=== PATIENT | female | born 1985 | race American Indian/Alaskan Native ===

== ENCOUNTER 2018-07-14 19:26 | Emergency (ER) | payer OTHER ==
[2018-07-14] MEDS ORDERED: Lactated Ringer's 1,000 ML IV SCH (21:00)
[2018-07-14 21:08] VITALS: BMI 23.3
[2018-07-14 21:08] LABS: BASO % 0.3 % (0.0-2.0); EOS # 0.1 K/uL (0.0-0.7); EOS % 0.8 % (0.0-4.0); HEMOGLOBIN 10.4 g/dL (12.0-16.0); LYMPH # 1.1 K/uL (1.0-4.3); LYMPH % 17.2 % (20.0-40.0); MEAN CELL VOLUME 77.7 fl (81.0-99.0); MEAN CORPUSCULAR HEMOGLOBIN 25.6 pg (27.0-31.0); MEAN CORPUSCULAR HGB CONC 32.9 g/dL (33.0-37.0); MEAN PLATELET VOLUME 9.2 fl (7.2-11.7); MONO # 0.9 K/uL (0.0-0.8); NEUT # 4.4 K/uL (1.8-7.0); NEUT % 67.7 % (50.0-75.0); RBC 4.08 Mil/uL (3.80-5.20); RED CELL DISTRIBUTION WIDTH 18.2 % (11.5-14.5); WHITE BLOOD COUNT 6.4 K/uL (4.8-10.8)
[2018-07-14 21:14] LABS: SQUAMOUS EPITHIAL 1 /hpf (0-5); URINE BACTERIA OCC (<OCC); URINE BILIRUBIN NEGATIVE (NEGATIVE); URINE BLOOD NEGATIVE (NEGATIVE); URINE CLARITY CLEAR (Clear); URINE COLOR STRAW (YELLOW); URINE GLUCOSE (UA) NEG (Normal); URINE LEUKOCYTE ESTERASE NEG Leu/uL (Negative); URINE PROTEIN NEGATIVE (NEGATIVE); URINE UROBILINOGEN 0.2-1.0 mg/dL (0.2-1.0)
[2018-07-14 21:19] LABS: ALB/GLOB RATIO 1.1 (1.0-2.1); ALBUMIN 3.6 g/dL (3.5-5.0); ALT/SGPT 25 U/L (9-52); AMYLASE 81 U/L (30-110); AST/SGOT 30 U/L (14-36); BLOOD UREA NITROGEN 4 mg/dl (7-17); CALCIUM 8.8 mg/dL (8.4-10.2); GFR NON-AFRICAN AMERICAN > 60; LIPASE 110 U/L (23-300)
[2018-07-15 03:12] VITALS: BP 109/61; PULSE 78; RESP 17; TEMP 98.2
--- NOTE | 2018-07-15 09:37 | OBHP ---
Datetime: 07/14/2018 20:57 IP Adm Impression: , intrauterine IP Admit Plan: Observation/Evaluation Admit Comment, IP Provider: Pt is a 32 yo 35.1 wk present to [facility] due to feeling fever, ch ills, nausea, abdominal discomfort taht started yesterday. Pt state that she have taken Tums for her nausea with no improvemt, pt denies vomiting. Pt also state that she had some fluid discharge but den ies wetting bed, floor, or gush of fluid nor vaginal bleeding. Pt have no other complain. Pt denies c hest pain sob, frequent contraction, dysuria or polyuria. Allergy: fruits, nuts ( SOB, itchy) Meds: PNV, iron ( not taken due make her feel uncomfortable) PMH: anemia OBHx: 2 miscarriage, 1 , 2 c-sec due to decrease placenta fluid PFH: mom dm/htn, pancreatic cancer, Dad prostate cancer social: denies smoke/drink or drug use ROS: all neg except if mentioned in HPI Assessment Pt is a 32 yo 35.1 wk present to [facility] due to feeling fever, chills, nausea, abdominal di scomfort taht started yesterday Pt is lying comfortable in bed cervix is closed Pt feel baby moving Vitals: wnl strip reassuring Plan CBC/CMP UA amylase/lipase LR 1L at 999 Will reassess after blood work is back 21:56 Reassessment pt is lying comfortable in bed with no acute distress vitals wnl strip reassuring Lab wnl except for H/H 10.4/31.7 Plan Discharge home, f/u with doctor pt was advised to go to ER if feel worst, chest pain, sob, abd pain, diarrhea, dysuria or polyuria , vaginal bleed, water gush, or any other concern Discussed with Dr Jose Angel Salas PGY1 Addendum: I saw and examined patient. heart tracing reactive, no evidence of labor at this papo e. All labs within normal limits. Patient comfortable without complaints. Patient discharged home wit h labor precautions. [place] Pelvic Type - PN: Adequate Extremities - PN: Normal Abdomen - PN: Normal Back - PN: Not Done Breast - PN: Not Done Lungs - PN: Normal Thyroid - PN: Not Done Neurologic - PN: Not Done HEENT - PN: Normal General - PN: Normal FHR - Baseline A Provider: 135 Comments, ACOG Physical Exam: pt is lying comfortable in bed with no acute distress Cardio: s1/s2 heard no murmur lung clear in all quadrant abd; nontender, bs+ extremities no calf tenderness pelvic: cervix is close EGA AdmitDate IP: 35.1 Vital Signs Provider: Reviewed; Within Normal Limits IP Chief Complaint: Maternal discomfort NICHD Variability Prov Fetus A: Moderate 6-25bpm NICHD Decel Fetus A IP Provider: None Genitourinary Exam: Not Done DTRs - PN: Not Done
== END 2018-07-14 22:00 | disposition home or self-care (01) ==
LOC: H.EROB2 19:26
DX: O26.93 Pregnancy related conditions, unspecified, third trimester (principal); R10.2 Pelvic and perineal pain; Z87.59 Personal history of other complications of pregnancy, childbirth and the puerperium; Z3A.35 35 weeks gestation of pregnancy; O47.03 False labor before 37 completed weeks of gestation, third trimester; R50.9 Fever, unspecified; R11.0 Nausea
CPT/HCPCS: 80053; 81003; 82150; 83690; 85025; 96360; 99283; J7120

== ENCOUNTER 2018-08-08 09:36 | Inpatient (IN) | payer OTHER ==
[2018-08-08 09:57] VITALS: BMI 25.0
[2018-08-08] MEDS ORDERED: Lactated Ringer's 1,000 ML IV ONE ×2 (10:20→15:15)
[2018-08-08] MEDS ORDERED: cefOXitin 2 GM in Sodium Chloride 0.9% 100 ML IVPB ONE ×3 (10:20→20:06)
[2018-08-08] MEDS ORDERED: Oxytocin 30 units/LR 500ML 30 UNITS/500 ML BAG IV ONE ×4 (10:26→20:06)
[2018-08-08] MEDS ORDERED: OXYTOCIN/0.9 % NS 20 UNIT/1,000 ML BAG IV ONE (10:30)
[2018-08-08 11:27] LABS: BASO % 0.3 % (0.0-2.0); EOS % 0.6 % (0.0-4.0); HEMOGLOBIN 11.5 g/dL (12.0-16.0); LYMPH # 1.4 K/uL (1.0-4.3); LYMPH % 17.6 % (20.0-40.0); MEAN CELL VOLUME 78.1 fl (81.0-99.0); MEAN CORPUSCULAR HEMOGLOBIN 25.7 pg (27.0-31.0); MEAN CORPUSCULAR HGB CONC 32.9 g/dL (33.0-37.0); MEAN PLATELET VOLUME 9.4 fl (7.2-11.7); MONO # 0.6 K/uL (0.0-0.8); NEUT # 5.8 K/uL (1.8-7.0); NEUT % 74.5 % (50.0-75.0); NRBC % 0.1 % (0.0-0.0); RBC 4.47 Mil/uL (3.80-5.20); RED CELL DISTRIBUTION WIDTH 19.2 % (11.5-14.5); WHITE BLOOD COUNT 7.8 K/uL (4.8-10.8)
[2018-08-08] MEDS ORDERED: NS IV ONE (11:56)
[2018-08-08] MEDS ORDERED: OXYTOCIN IV ONE (11:56)
[2018-08-08] MEDS ORDERED: ePHEDrine 50 mg/ml Inj ONE (14:04)
[2018-08-08] MEDS ORDERED: Morphine 1 mg/ml preservative-free Inj(Duramorph) ONE (14:04)
[2018-08-08] MEDS ORDERED: Oxytocin 30 UNIT 30 UNITS/500 ML BAG IV ONE (16:35)
[2018-08-08] MEDS ORDERED: DiphenhydrAMINE 50 mg/ml Inj IVP PRN ×2 (17:23→20:06)
--- NOTE | 2018-08-08 17:31 | OBADHP ---
Datetime: 08/08/2018 17:25 Admit Comment, IP Provider: iuyp at term uneventful course previous section admitted for re peat section Pelvic Type - PN: Adequate Extremities - PN: Normal Abdomen - PN: Normal Back - PN: Normal Breast - PN: Normal Lungs - PN: Normal Heart - PN: Normal Thyroid - PN: Normal Neurologic - PN: Normal HEENT - PN: Normal General - PN: Normal Presentation-Admit: Vertex FHR - Baseline A Provider: 130 Membranes, Provider: Intact Contraction Comments Provider: irregular Gestation - Est Wks by US: 39.0 Vital Signs Provider: Reviewed; Within Normal Limits IP Chief Complaint: Uterine contractions NICHD Variability Prov Fetus A: Moderate 6-25bpm NICHD Accel Fetus A IP Provider: 10X10 FHR Category Provider Fetus A: Category I NICHD Decel Fetus A IP Provider: None Dilatation, Provider: 1 Effacement, Provider: 50 Station, Provider: -3 Genitourinary Exam: Normal DTRs - PN: Normal EGA AdmitDate IP: 38.5 IP Adm Impression: Term, intrauterine IP Admit Plan: Admit to unit; Initiate Section protocol Datetime: 07/14/2018 20:57 Comments, ACOG Physical Exam: pt is lying comfortable in bed with no acute distress Cardio: s1/s2 heard no murmur lung clear in all quadrant abd; nontender, bs+ extremities no calf tenderness pelvic: cervix is close
--- NOTE | 2018-08-08 17:36 | OBDS ---
DELIVERY PERSONNEL Delivery Doctor: Dr House(Surgeon) Dr Eller Assisting Surgeon) Commercial Retoucher: [facility] Anesthesiologist: Nishant Mann MD MATERNAL INFORMATION Delivery Anesthesia: Spinal Placenta Cultured: No Maternal Complications: None Provider Comments: delivery of live baby girl 9/9 clear fluid 2-nuchal cords placenta intact c ord with 3-vessels LABOR SUMMARY EDC: 08/17/2018 00:00 No. Babies in Womb: 1 Attempted: No Labor Anesthesia: None LABOR INFORMATION Reason for Induction: Not Applicable Oxytocin: N/A Group B Beta Strep: Negative Antibiotics # of Doses: Mefoxin 2 gram Antibiotics Time of Last Dose: Mefoxin 2 gram IVPB Steroids Given: None Reason Steroids Not Administered: Not Applicable MEMBRANES Membranes Rupture Method: Artificial STAGES OF LABOR Stage 3 hrs: 0 Stage 3 min: 1 VAGINAL DELIVERY Episiotomy: None Laceration Extension: N/A CSECTION DELIVERY Primary Indication: Repeat Elective CSection Urgency: Elective CSection Incidence: Repeat Labor: No Labor Elective: Elective CSection Incision: Lower Uterine Transverse Uterine Closure: Double-layer closure BABY A INFORMATION Infant Delivery Date/Time: 08/08/2018 16:34 Method of Delivery: Born in Route : No : N/A Forceps: N/A Vacuum Extraction: N/A Shoulder Dystocia : No SHOULDER DYSTOCIA BABY A Delivery Date/Time: 08/08/2018 16:34 PRESENTATION/POSITION BABY A Presentation: Cephalic Cephalic Presentation: Vertex PLACENTA INFORMATION BABY A Placenta Delivery Time : 08/08/2018 16:35 Placenta Method of Delivery: Expressed Placenta Status: Delivered SCORES BABY A Heart Rate 1 min: >100 bpm Resp Effort 1 min: Slow, Irregular Reflex Irritability 1 min: Cough or Sneeze or Pulls Away Muscle Tone 1 min: Some Flexion of Extremities Color 1 min: Body [place], Extremities Blue Resuscitation Effort 1 min: Tactile Stimulation; PPV/NCPAP SCORE 1 MIN: 7 Heart Rate 5 min: >100 bpm Resp Effort 5 min: [place] Reflex Irritability 5 min: Cough or Sneeze or Pulls Away Muscle Tone 5 min: Some Flexion of Extremities Color 5 min: Body [place], Extremities Blue Resuscitation Effort 5 min: Tactile Stimulation SCORE 5 MIN: 8 INFANT INFORMATION BABY A Gestational Age at Delivery: 38.5 Gestational Status: Term Outcome : Liveborn Condition : Stable Sex: Female IDENTIFICATION/MEDS BABY A ID Band Number: [id number] ID Band Location: Left Leg; Left Arm Vitamin K Given : Not Given Erythromycin Given: Not Given CORD INFORMATION BABY A Nuchal Cord : Around Neck x2, Loose Nuchal Cord Other: n/a True Knot: n/a Cord pH Baby Arterial: n/a Infant Cord pH Baby Venous: n/a Banking/Donate Info: n/a Suction: Mouth; Nose
[2018-08-08] MEDS ORDERED: Oxycodone/Acetaminophen 5/325 mg Tab PO PRN ×4 (17:38→20:06)
[2018-08-08] MEDS ORDERED: Acetaminophen-Codeine 300/30 mg Tab PO PRN ×2 (17:38→20:06)
[2018-08-08] MEDS ORDERED: Bisacodyl 5mg EC Tab PO PRN ×2 (17:38→20:06)
--- NOTE | 2018-08-09 05:42 | OP ---
PROCEDURE DATE: 08/08/2018 PREOPERATIVE DIAGNOSES: Term , previous section, having contractions, for delivery. POSTOPERATIVE DIAGNOSES: Term , previous section, having contractions, for delivery. SURGEON: Hussain House MD COOK SYRUP MAKER: Brody Eller MD ANESTHESIOLOGIST: John Mann MD ANESTHESIA: Spinal anesthesia. PROCEDURE: Repeat low transverse section. FINDINGS: Term size uterus. Live baby girl. Apgars 9 and 9. Clear fluid. Two nuchal cords. Placenta, anterior tubes, and ovaries within normal limits. DESCRIPTION OF PROCEDURE: With the patient in supine position and under spinal anesthesia, the patient was prepped and draped in the usual sterile manner. Dr. Eller was assisting in the preparation of the surgery. Following this, a low transverse incision was made in the uterus and taken down to the fascia in layers. Fascia was incised and extended bilaterally. Dr. Eller was doing his half and I was doing my half. The muscle was from the fascia by sharp dissection. After which, the peritoneum was grasped, incised, and extended vertically. Upon entering the abdominopelvic cavity, paracolic gutters were packed with wet laps, pushing the bowel away from the operative field. A low transverse incision was made in the uterus, extending bilaterally and curving upwards. Baby was removed without any complication and given to education and development manager who resuscitated. As I said before, there were two nuchal cords. After this was done, the uterus was exteriorized, cleaned, and closed in two layers. There were found to be some intramural fibroids anteriorly. Following this, the uterus was closed in two layers with running interlocking stitch, maintaining hemostasis. As this done, the pelvic cavity was irrigated until clean. The wet laps were removed from the paracolic gutters. The uterus was then repositioned and peritoneum was grasped and closed with 1 Vicryl. The muscle was approximated with 1 Vicryl. The fascia was closed with 1 Vicryl running interlocking stitch, starting at each end and finishing in the middle. Dr. Eller was doing his half and I was doing my half. The subcutaneous layer was closed with 2-0 plain, and the skin was closed with gold. Dr. Eller was there from the beginning to the end of the surgery. The patient tolerated the procedure well and was in satisfactory condition on her way to recovery room. Hussain House MD
[2018-08-09 08:34] LABS: HEMOGLOBIN 10.9 g/dL (12.0-16.0); MEAN CELL VOLUME 77.6 fl (81.0-99.0); MEAN CORPUSCULAR HGB CONC 33.4 g/dL (33.0-37.0); RBC 4.21 Mil/uL (3.80-5.20); RED CELL DISTRIBUTION WIDTH 19.7 % (11.5-14.5); WHITE BLOOD COUNT 12.3 K/uL (4.8-10.8)
[2018-08-09] MEDS ORDERED: Multivitamin With Minerals Tab PO SCH (09:00)
[2018-08-09] MEDS: Multivitamin With Minerals Tab PO SCH (15:18)
--- NOTE | 2018-08-09 15:26 | OBPPN ---
Datetime: 08/09/2018 15:21 PP Pain Prov: Within normal limits PP Nausea Prov: Denies PP Flatus Prov: Yes PP BM Prov: No PP Breasts Prov: Normal PP Heart Prov: Normal PP Lungs Prov: Normal PP Abdomen/Uterus Prov: Normal PP Lochia Prov: Normal PP Vulva/Perineum Prov: Normal PP CVA Tenderness Prov: Normal PP Extremities Prov: Normal PP C/S Incision Prov: Normal PP Progress Prov: Normal PP Impression Prov: Normal progression PP Plan Prov: Continue present management PP Progress Note Prov: stable pod 1 dressing is clean dc dressing ,oob with assistance,may shower,ad ellis diet as tolerated IP PP Procedures: None
[2018-08-10] MEDS: Multivitamin With Minerals Tab PO SCH (08:38)
--- NOTE | 2018-08-10 12:26 | OBPPN ---
Datetime: 08/10/2018 12:21 PP Pain Prov: Within normal limits PP Pain Prov comment: no SOB, chest or leg pains PP Nausea Prov: Denies PP Flatus Prov: Yes PP BM Prov: No PP Breasts Prov: Normal PP Lungs Prov: Normal PP Abdomen/Uterus Prov: Abnormal PP Lochia Prov: Normal PP Vulva/Perineum Prov: Normal PP CVA Tenderness Prov: Normal PP Extremities Prov: Normal PP C/S Incision Prov: Normal PP Progress Prov: Normal PP Comments Phys Exam Prov: breast not engorged NT; Abd soft ND, fundus firm below the umb Incision clean and dry dressing removed gold in place no sign of infection; Ext no calf tenderness PP Impression Prov: Normal progression PP Plan Prov: Continue present management PP Progress Note Prov: Dulcolax suppt this pm OOB and ambulation Repeat plat count wnl Continue PO c are and pp care IP PP Procedures: None Datetime: 08/09/2018 15:21 Vital Signs Provider PP: Reviewed; Within Normal Limits
--- NOTE | 2018-08-11 08:35 | OBPPN ---
Datetime: 08/11/2018 08:32 PP Pain Prov: Within normal limits PP Nausea Prov: Denies PP Flatus Prov: Yes PP BM Prov: Yes PP Breasts Prov: Normal PP Heart Prov: Normal PP Lungs Prov: Normal PP Abdomen/Uterus Prov: Normal PP Lochia Prov: Normal PP Vulva/Perineum Prov: Normal PP CVA Tenderness Prov: Normal PP Extremities Prov: Normal PP C/S Incision Prov: Normal PP Progress Prov: Normal PP Impression Prov: Normal progression PP Plan Prov: Continue present management PP Progress Note Prov: stable pod 3 no complasints IP PP Procedures: None Vital Signs Provider PP: Reviewed; Within Normal Limits
--- NOTE | 2018-08-11 08:40 | OBDCSUM ---
Datetime: 08/11/2018 08:35 Discharged to, Provider: Home Follow up at, Provider: Disch Instr Activity: Normal activity; Bedrest; May be up to bathroom; May be up for meals; May Show er Disch Instr Diet: Regular Discharge Instructions, Provider: Specific instructions as noted Discharge Diagnosis, Provider: Term Delivered Discharge Time: 08/11/2018 08:35 Follow up in weeks, Provider: 1 week in office Disch Referrals: None Disch Activity Restrictions: No exercising; No lifting; No driving; Minimize walking; Minimize stair -climbing; No sexual activity; Nothing in vagina - [place], tampons, douche Discharge Comment, Provider: ezra home today rto 1week call office if any problem Contraception after Delivery: Undecided
[2018-08-11] MEDS: Multivitamin With Minerals Tab PO SCH (09:23)
[2018-08-11 22:20] VITALS: BP 115/72; PULSE 61; RESP 20; TEMP 98; O2SAT 98
== END 2018-08-11 14:20 | disposition home or self-care (01) | DRG 766 ==
LOC: H.EROB2 09:36 → H.L&D 10:20 → H.OB/GYN 19:45
PROVIDERS: ADMIT Specialist; ATTEND Specialist
PROC: 10D00Z1 Extraction of Products of Conception, Low, Open Approach (ICD-10-PCS; principal; 2018-08-08)
PROC: 4A1HXCZ Monitoring of Products of Conception, Cardiac Rate, External Approach (ICD-10-PCS; 2018-08-08)
DX: O34.211 Maternal care for low transverse scar from previous cesarean delivery (principal); O69.81X0 Labor and delivery complicated by cord around neck, without compression, not applicable or unspecified; Z37.0 Single live birth; Z3A.38 38 weeks gestation of pregnancy; Z88.2 Allergy status to sulfonamides; Z91.040 Latex allergy status; Z91.010 Allergy to peanuts